=== PATIENT | male | born 1965 | race Caucasian/White ===

== ENCOUNTER 2016-12-29 11:53 | Emergency (ER) | payer SELFPAY ==
[2016-12-29 11:57] VITALS: BP 116/78
[2016-12-29] MEDS ORDERED: HYDROcodone/ACETAMIN 5-325 MG* 1 TAB PO ONE (12:12)
--- NOTE | 2016-12-29 13:06 | RAD ---
HISTORY: Testicular pain, right carotid the left COMPARISONS: None TECHNIQUE: Multiple transverse and longitudinal ultrasound images were obtained of the scrotum, using grayscale, color Doppler, and spectral Doppler imaging. FINDINGS: RIGHT: RIGHT TESTICLE: The right testicle measures 5.7 x 2.5 x 3.3 cm. The right testicle is homogeneous in echotexture, without testicular parenchymal mass. Normal arterial and venous waveforms are identified within the right testicle on spectral Doppler imaging. RIGHT EPIDIDYMIS: The right epididymis measures 1.3 cm at the head. RIGHT SCROTUM: There is no hydrocele or varicocele. LEFT: LEFT TESTICLE: The left testicle measures 5.3 x 2.4 x 3.2 cm. The left testicle is homogeneous in echotexture, without testicular parenchymal mass. Normal arterial and venous waveforms are identified within the left testicle on spectral Doppler imaging. LEFT EPIDIDYMIS: The left epididymis measures 1.1 cm at the head. LEFT SCROTUM: There is no hydrocele or varicocele. OTHER: None IMPRESSION: 1. NO TESTICULAR PARENCHYMAL MASS. 2. NO SONOGRAPHIC FEATURES OF TORSION. PLEASE NOTE THAT PARTIAL OR INTERMITTENT TORSION MAY BE SONOGRAPHICALLY NORMAL.
[2016-12-29 13:28] LABS: Hematocrit 42 % (42-52); Mean Corpuscular HGB Conc 33 g/dl (31-36); Mean Corpuscular Hemoglobin 32 pg (27-31); Mean Corpuscular Volume 97 fL (80-94); Mean Platelet Volume 7 um3 (7.4-10.4); Red Blood Count 4.34 10^6/ul (4.0-5.4); Red Cell Distribution Width 13 % (10.5-15)
[2016-12-29 13:31] LABS: Urine Bilirubin Negative (Negative); Urine Glucose Negative (Negative); Urine Nitrite Negative (Negative)
[2016-12-29 13:57] LABS: Albumin 3.7 g/dL (3.2-5.2); BUN/Creatinine Ratio 22.4 (8-20); C Reactive Protein 19.48 mg/L (< 5.00); Calcium 8.5 mg/dL (8.6-10.3); EGFR African American 140.2 (>60); Globulin 2.5 g/dL (2-4); Potassium 3.7 mmol/L (3.5-5.0); Total Bilirubin 0.4 mg/dL (0.2-1.0); Total Protein 6.2 g/dL (6.4-8.9)
[2016-12-29] MEDS ORDERED: Iohexol 300* (CONTRAST) 10 ML SDV IV ONE (15:47)
--- NOTE | 2016-12-29 17:27 | RAD ---
INDICATION: Lower abdominal pain and testicular pain for 2 days. COMPARISON: Testicular ultrasound of the same date. TECHNIQUE: Multidetector CT images were obtained from the lung bases to the ischial tuberosities with 127 mL Omnipaque 300 IV and oral contrast. Multiplanar reformation. REPORT: Minimal bibasilar dependent subsegmental atelectasis. Normal size liver is diffusely decreased in density consistent with hepatosteatosis with focal sparing at the gallbladder fossa. No suspicious focal hepatic lesions or biliary dilatation. Unremarkable CT appearance of the gallbladder, pancreas, spleen. Negative for CT abnormality of the upper GI or retrocecal appendix. Moderate colonic diverticulosis primarily at the sigmoid colon. Inflamed diverticulum projects anteriorly from the proximal sigmoid colon with mild surrounding perienteric inflammatory change. Negative for ascites, free air, or perienteric abscess. Normal adrenal glands. Unremarkable kidneys with symmetric nephrograms and pyelograms. Unremarkable nondilated ureters and largely decompressed urinary bladder limiting assessment. Coarse calcification at the LEFT portion of the prostate. Unremarkable seminal vesicles. Negative for lymphadenopathy. Normal diameter abdominal aorta and iliac arteries. Physiologic distention of the IVC. Negative for suspicious focal osseous lesions. IMPRESSION: The constellation of findings is consistent with acute sigmoid diverticulitis. Negative for resulting bowel obstruction, free air, or perienteric abscess. Follow-up after therapy suggested to assess for resolution.
--- NOTE | 2016-12-29 18:37 | ED ---
Darinel Amador Thomas, scribed for Edin Smiley MD on 12/29/16 at 1314 . GI/ HPI - HPI Summary HPI Summary: Pt is a 51 y/o M presenting to the ED c/o abdominal pain and testicular pain that began two days ago. He rates the pain 5/10. The pain is exacerbated by movement and palpation. He additionally c/o a pressure sensation in his anal region. He denies dysuria and constipation. - History of Current Complaint Chief Complaint: EDAbdPain Time Seen by Provider: 12/29/16 12:57 Stated Complaint: ABD/GROIN PAIN Hx Obtained From: Patient Onset/Duration: Started Days Ago - 2 days, Still Present Timing: Constant Current Severity: Moderate Pain Intensity: 5 Location of Pain: RLQ, LLQ, Anal - "pressure sensation" in anal region Additional Locations for Males: Scrotum, Testicles Associated Signs and Symptoms: Negative: Constipation, Dysuria Aggravating Factor(s): Movement Alleviating Factor(s): Nothing - Allergy/Home Medications Allergies/Adverse Reactions: Allergies Allergy/AdvReac Type Severity Reaction Status Date / Time No Known Drug Allergy Allergy Unknown Verified 12/29/16 13:57 Reaction Details PMH/Surg Hx/FS Hx/Imm Hx Previously Healthy: Yes Cardiovascular History: Denies: Hx Myocardial Infarction Sensory History: Denies: Hx Legally Blind Infectious Disease History: Denies: Traveled Outside the [place] in Last 30 Days - Family History Known Family History: Positive: Other - POS: Alzheimer's disease - Social History Hx Tobacco Use: No Smoking Status (MU): Never Smoked Tobacco Review of Systems Constitutional: Negative Eyes: Negative ENT: Negative Cardiovascular: Negative Respiratory: Negative Positive: Abdominal Pain - lower, onset 2 days, Other - POS: "pressure sensation " in the anal area; NEG: constipation Positive: pain - testicular, soreness. Negative: dysuria Musculoskeletal: Negative Skin: Negative Neurological: Negative Psychological: Normal All Other Systems Reviewed And Are Negative: Yes Physical Exam Triage Information Reviewed: Yes Vital Signs On Initial Exam: Initial Vitals Temp Pulse Resp BP Pulse Ox 98.2 F 58 20 116/78 96 12/29/16 11:55 12/29/16 11:55 12/29/16 11:55 12/29/16 11:55 12/29/16 11:55 Vital Signs Reviewed: Yes Appearance: Positive: Well-Appearing, No Pain Distress Skin: Positive: Warm, Skin Color Reflects Adequate Perfusion, Dry Head/Face: Positive: Normal Head/Face Inspection Eyes: Positive: Normal ENT: Positive: Normal ENT inspection Neck: Positive: Supple, Nontender Respiratory/Lung Sounds: Positive: Clear to Auscultation, Breath Sounds Present Cardiovascular: Positive: RRR Abdomen Description: Positive: Soft, Other: - POS: bilat lower quadrant tenderness Bowel Sounds: Positive: Present Musculoskeletal: Positive: Normal Neurological: Positive: Normal, Sensory/Motor Intact, Alert, Oriented to Person Place, Time, CN Intact II-III Psychiatric: Positive: Normal, Affect/Mood Appropriate Diagnostics - Vital Signs Vital Signs Temp Pulse Resp BP Pulse Ox 12/29/16 11:57 98.3 F 61 20 116/78 96 12/29/16 11:55 98.2 F 58 20 116/78 96 - Laboratory Lab Results: Lab Results 12/29/16 12/29/16 12/29/16 Range/Units 13:16 13:16 13:16 WBC 7.0 (3.5-10.8) 10^3/ul RBC 4.34 (4.0-5.4) 10^6/ul Hgb 14.0 (14.0-18.0) g/dl Hct 42 (42-52) % MCV 97 H (80-94) fL MCH 32 H (27-31) pg MCHC 33 (31-36) g/dl RDW 13 (10.5-15) % Plt Count 214 (150-450) 10^3/ul MPV 7 L (7.4-10.4) um3 Neut % (Auto) 56.4 (38-83) % Lymph % (Auto) 28.8 (25-47) % [place] % (Auto) 12.3 H (1-9) % Eos % (Auto) 1.3 (0-6) % Baso % (Auto) 1.2 (0-2) % Absolute Neuts (auto) 3.9 (1.5-7.7) 10^3/ul Absolute Lymphs (auto) 2.0 (1.0-4.8) 10^3/ul Absolute Monos (auto) 0.9 H (0-0.8) 10^3/ul Absolute Eos (auto) 0.1 (0-0.6) 10^3/ul Absolute Basos (auto) 0.1 (0-0.2) 10^3/ul Absolute Nucleated RBC 0 10^3/ul Nucleated RBC % 0.1 Sodium 136 (133-145) mmol/L Potassium 3.7 (3.5-5.0) mmol/L Chloride 105 (101-111) mmol/L Carbon Dioxide 26 (22-32) mmol/L Anion Gap 5 (2-11) mmol/L BUN 17 (6-24) mg/dL Creatinine 0.76 (0.67-1.17) mg/dL Est GFR ( Amer) 140.2 (>60) Est GFR (Non-Af Amer) 109.0 (>60) BUN/Creatinine Ratio 22.4 H (8-20) Glucose 90 (70-100) mg/dL Lactic Acid (0.5-2.0) mmol/L Calcium 8.5 L (8.6-10.3) mg/dL Total Bilirubin 0.40 (0.2-1.0) mg/dL AST 9 L (13-39) U/L ALT 11 (7-52) U/L Alkaline Phosphatase 49 (34-104) U/L C-Reactive Protein 19.48 H (< 5.00) mg/L Total Protein 6.2 L (6.4-8.9) g/dL Albumin 3.7 (3.2-5.2) g/dL Globulin 2.5 (2-4) g/dL Albumin/Globulin Ratio 1.5 (1-3) Lipase 23 (11.0-82.0) U/L Urine Color Yellow Urine Appearance Clear Urine pH 7.0 (5-9) Ur Specific [place] 1.021 (1.010-1.030) Urine Protein Negative (Negative) Urine Ketones Negative (Negative) Urine Blood Negative (Negative) Urine Nitrate Negative (Negative) Urine Bilirubin Negative (Negative) Urine Urobilinogen Negative (Negative) Ur Leukocyte Esterase Negative (Negative) Urine Glucose Negative (Negative) 12/29/16 Range/Units 13:16 WBC (3.5-10.8) 10^3/ul RBC (4.0-5.4) 10^6/ul Hgb (14.0-18.0) g/dl Hct (42-52) % MCV (80-94) fL MCH (27-31) pg MCHC (31-36) g/dl RDW (10.5-15) % Plt Count (150-450) 10^3/ul MPV (7.4-10.4) um3 Neut % (Auto) (38-83) % Lymph % (Auto) (25-47) % [place] % (Auto) (1-9) % Eos % (Auto) (0-6) % Baso % (Auto) (0-2) % Absolute Neuts (auto) (1.5-7.7) 10^3/ul Absolute Lymphs (auto) (1.0-4.8) 10^3/ul Absolute Monos (auto) (0-0.8) 10^3/ul Absolute Eos (auto) (0-0.6) 10^3/ul Absolute Basos (auto) (0-0.2) 10^3/ul Absolute Nucleated RBC 10^3/ul Nucleated RBC % Sodium (133-145) mmol/L Potassium (3.5-5.0) mmol/L Chloride (101-111) mmol/L Carbon Dioxide (22-32) mmol/L Anion Gap (2-11) mmol/L BUN (6-24) mg/dL Creatinine (0.67-1.17) mg/dL Est GFR ( Amer) (>60) Est GFR (Non-Af Amer) (>60) BUN/Creatinine Ratio (8-20) Glucose (70-100) mg/dL Lactic Acid 0.6 (0.5-2.0) mmol/L Calcium (8.6-10.3) mg/dL Total Bilirubin (0.2-1.0) mg/dL AST (13-39) U/L ALT (7-52) U/L Alkaline Phosphatase (34-104) U/L C-Reactive Protein (< 5.00) mg/L Total Protein (6.4-8.9) g/dL Albumin (3.2-5.2) g/dL Globulin (2-4) g/dL Albumin/Globulin Ratio (1-3) Lipase (11.0-82.0) U/L Urine Color Urine Appearance Urine pH (5-9) Ur Specific [place] (1.010-1.030) Urine Protein (Negative) Urine Ketones (Negative) Urine Blood (Negative) Urine Nitrate (Negative) Urine Bilirubin (Negative) Urine Urobilinogen (Negative) Ur Leukocyte Esterase (Negative) Urine Glucose (Negative) Result Diagrams: 12/29/16 13:16 12/29/16 13:16 Lab Statement: Any lab studies that have been ordered have been reviewed, and results considered in the medical decision making process. - CT CT Abd/Pel CT Interpretation: Positive (See Comments) - The constellation of findings is consistent with acute sigmoid diverticulitis. Negative for resulting bowel obstruction, free air, or perienteric abscess. Follow-up after therapy suggested to assess for resolution. CT Interpretation Completed By: Radiologist - Ultrasound No standard instances Ultrasound Interpretation: No Acute Changes - TESTICULAR US: 1. NO TESTICULAR PARENCHYMAL MASS. 2. NO SONOGRAPHIC FEATURES OF TORSION. PLEASE NOTE THAT PARTIAL OR INTERMITTENT TORSION MAY BE SONOGRAPHICALLY NORMAL. Ultrasound Interpretation Completed By: Radiologist Re-Evaluation - Re-Evaluation First Eval Re-Evaluation Time: 18:10 Change: Unchanged GIGU Course/Dx - Course Course Of Treatment: Mr. Carnes has juju a couple days of low abdominal pain that radiates into his bilateral testicles especially when he walks or sits. CT showed diverticulitis and he will be treated with antibiotics. He declined pain meds. - Diagnoses Provider Diagnoses: Diverticulitis Discharge - Discharge Plan Condition: Stable Disposition: HOME Prescriptions: Ciprofloxacin TAB* [Cipro Tab*] 500 mg PO BID #20 tab Metronidazole [Flagyl 500 MG TAB] 500 mg PO TID #30 tab Patient Education Materials: Diverticulitis (ED) Referrals: [facility] – [place] PHYSICIAN REFERRAL [Outside] - 1 Week The documentation as recorded by the Darinel paula Thomas accurately reflects the service I personally performed and the decisions made by , Edin Smiley MD.
== END 2016-12-29 18:36 | disposition home or self-care (01) ==
LOC: ED 11:53
DX: K57.92 Diverticulitis of intestine, part unspecified, without perforation or abscess without bleeding (principal)
CPT/HCPCS: 36415; 74177; 76870; 80053; 81003; 83605; 83690; 85025; 86140; 99282; Q9967

== ENCOUNTER 2017-07-17 13:41 | Emergency (ER) | payer BC ==
--- NOTE | 2017-07-17 15:00 | RAD ---
Indication: Cough, fever. 2 views of the chest including dual energy PA views demonstrates no mediastinal shift. Heart is of normal size and configuration. Lung ayala are clear. IMPRESSION: No active cardiopulmonary disease is noted.
--- NOTE | 2017-07-17 15:27 | ED ---
Respiratory - HPI Summary HPI Summary: Patient presents to the ED with cough and congestion. He states his lungs feel like they are on fire. Endorses 1X episode of diahrrea this morning. Denies N/ V/C. Endorses chest pain with cough and SOB. He states he gets bronchitis every year and this feels similar. Endorses history of PNA. 2 episodes of fevers and sweats, but denies chills. This is worse at night. He is resting comfortably and appears in NAD. Hx of diverticulitis. Not on abx for at least 3 months. - History of Current Complaint Chief Complaint: EDUpperRespComplaint Stated Complaint: SICK Time Seen by Provider: 07/17/17 13:52 Hx Obtained From: Patient Onset/Duration: Sudden Onset Timing: Constant Initial Severity: Moderate Current Severity: Mild Pain Intensity: 0 Character: Cough (Productive) Sputum Amount: Scant Sputum Color: White Aggravating Factor(s): URI Alleviating Factor(s): Spontaneous Resolution Associated Signs and Symptoms: SOB, URI, Chest Pain with Cough - Risk Factors Status Asthmaticus Risk Factors: Negative Pulmonary Embolism Risk Factors: Negative Cardiac Risk Factors: Negative Pseudomonas Risk Factors: Negative Tuberculosis Risk Factors: Negative - Allergy/Home Medications Allergies/Adverse Reactions: Allergies Allergy/AdvReac Type Severity Reaction Status Date / Time Latex Allergy Rash And Verified 07/17/17 13:47 Itching PMH/Surg Hx/FS Hx/Imm Hx Previously Healthy: Yes Endocrine/Hematology History: Denies: Hx Diabetes Cardiovascular History: Denies: Hx Myocardial Infarction GI History: Reports: Hx Gastroesophageal Reflux Disease, Other GI Disorders - diverticulitis, gastritis Sensory History: Denies: Hx Legally Blind Opthamlomology History: Denies: Hx Legally Blind - Immunization History Hx Pertussis Vaccination: No Immunizations Up to Date: Unable to Obtain/Confirm Infectious Disease History: No Infectious Disease History: Denies: Traveled Outside the [place] in Last 30 Days - Family History Known Family History: Positive: Other - POS: Alzheimer's disease - Social History Occupation: Employed Full-time Lives: With Family Alcohol Use: Weekly Alcohol Amount: 1-2 beers Hx Substance Use: No Substance Use Type: Reports: None Substance Use Comment - Amount & Last Used: this am Hx Tobacco Use: No Smoking Status (MU): Never Smoked Tobacco Review of Systems Constitutional: Negative Negative: Fever, Chills, Fatigue, Skin Diaphoresis Eyes: Negative Negative: Sore Throat, Ear Ache, Nasal Discharge Positive: Chest Pain Positive: Shortness Of Breath, Cough Positive: Diarrhea. Negative: Abdominal Pain, Vomiting, Nausea Genitourinary: Negative Positive: no symptoms reported, see HPI Musculoskeletal: Negative Skin: Negative Neurological: Negative All Other Systems Reviewed And Are Negative: Yes Physical Exam Triage Information Reviewed: Yes Vital Signs On Initial Exam: Initial Vitals Temp Pulse Resp BP Pulse Ox 97.1 F 63 17 134/79 98 07/17/17 13:42 07/17/17 13:42 07/17/17 13:42 07/17/17 13:42 07/17/17 13:42 Vital Signs Reviewed: Yes Appearance: Positive: Well-Appearing, Well-Nourished Skin: Positive: Warm, Skin Color Reflects Adequate Perfusion Head/Face: Positive: Normal Head/Face Inspection Eyes: Positive: EOMI, ASTER, Conjunctiva Clear Neck: Positive: Supple, No Lymphadenopathy Respiratory/Lung Sounds: Positive: Clear to Auscultation, Breath Sounds Present Cardiovascular: Positive: RRR, Pulses are Symmetrical in both Upper and Lower Extremities Musculoskeletal: Positive: Normal, Strength/ROM Intact Neurological: Positive: Speech Normal Psychiatric: Positive: Normal, Affect/Mood Appropriate - Jordyn Coma Scale Coma Scale Total: 15 Diagnostics - Vital Signs Vital Signs Temp Pulse Resp BP Pulse Ox 07/17/17 13:42 97.1 F 63 17 134/79 98 - Laboratory Lab Results: Lab Results 07/17/17 Range/Units 14:11 Influenza A (Rapid) Negative (Negative) Influenza B (Rapid) Negative (Negative) Lab Statement: Any lab studies that have been ordered have been reviewed, and results considered in the medical decision making process. Disposition - Course Course Of Treatment: Patient presents to the ED with cough and congestion. Xray obtained and negative for pulmonary disease. Patient is given steroids and cough medication. I have discouraged antibiotics based on negative xray. He is Ok with discharge and I have given return precations and follow up for worsening symtpoms. Lungs CTA - Differential Dx - Cardiopulmonary Differential Diagnoses - Cardiopulmonary: Bronchitis, Chest Wall Pain - Diagnoses Provider Diagnoses: Bronchitis Discharge - Discharge Plan Condition: Stable Disposition: HOME Prescriptions: Guaifenesin-Codeine [Codeine/Guaifenesin 100-10 mg/5Ml] 10 ml PO Q6H #160 ml MDD 40 predniSONE TAB* [Deltasone TAB*] 50 mg PO DAILY #5 tab Patient Education Materials: Acute Bronchitis (ED) Referrals: No Primary Care Phys,NOPCP [Primary Care Provider] - Additional Instructions: I believe you have bronchitis which is inflammation in the lungs I have prescribed you prednisone 50mg 5 x daily Robitussin with codeine is given for cough
[2017-07-17 15:44] VITALS: BP 122/77
== END 2017-07-17 15:41 | disposition home or self-care (01) ==
LOC: ED 13:41
DX: J40 Bronchitis, not specified as acute or chronic (principal); R06.02 Shortness of breath; J06.9 Acute upper respiratory infection, unspecified; R05 Cough; R07.9 Chest pain, unspecified
CPT/HCPCS: 71046; 87502; 99282

== ENCOUNTER 2017-10-13 09:28 | Emergency (ER) | payer SELFPAY ==
[2017-10-13] MEDS ORDERED: Aspirin 81 mg CHEW TAB* 81 MG TAB.CHEW PO ONE (10:35)
[2017-10-13] MEDS ORDERED: NS 0.9% 1000 ML* 1,000 ML IV ONE (10:35)
[2017-10-13] MEDS ORDERED: Ondansetron INJ* 2 MG/ML VIAL IV ONE ×2 (10:35→13:06)
[2017-10-13] MEDS ORDERED: Morphine INJ* 4 MG/ML 1 ML SYRINGE (NEW SYRINGE VERSION) IV ONE ×2 (10:35→13:06)
[2017-10-13] MEDS ORDERED: Morphine INJ* 2 MG/ML 1 ML CARPUJECT ONE (10:47)
[2017-10-13 11:12] LABS: ABS Basophils 0.1 10^3/ul (0-0.2); ABS Eosinophils 0.1 10^3/ul (0-0.6); ABS Lymphocytes 1.8 10^3/ul (1.0-4.8); ABS Monocytes 1.1 10^3/ul (0-0.8); ABS Neutrophils 5.9 10^3/ul (1.5-7.7); ABS Nucleated RBC 0 10^3/ul; Eosinophil % 1.6 % (0-6); Hematocrit 42 % (42-52); Hemoglobin 14.3 g/dl (14.0-18.0); Lymphocyte % 20.1 % (25-47); Mean Corpuscular HGB Conc 34 g/dl (31-36); Mean Corpuscular Hemoglobin 32 pg (27-31); Mean Corpuscular Volume 95 fL (80-94); Mean Platelet Volume 7.2 um3 (7.4-10.4); Nucleated Red Blood Cells % 0.1; Platelet Count 217 10^3/ul (150-450); Red Blood Count 4.46 10^6/ul (4.0-5.4); Red Cell Distribution Width 14 % (10.5-15); White Blood Count 8.9 10^3/ul (3.5-10.8)
--- NOTE | 2017-10-13 11:18 | RAD ---
HISTORY: MRI clearance. COMPARISON: None. FINDINGS: Frontal and lateral views of the orbits. There is no radiopaque foreign body attributable to the orbits. The orbital rims are intact. The sinuses are clear. The zygomatic arches are normal. IMPRESSION: No radiopaque foreign body attributable to the orbits.
[2017-10-13 11:23] LABS: INR 0.84 (0.77-1.02)
[2017-10-13 11:33] LABS: EGFR Non-African American 97.1 (>60)
[2017-10-13] MEDS: Iohexol 350* (CONTRAST) 500 ML MDV IV ONE ×2 (12:27→12:33)
--- NOTE | 2017-10-13 12:42 | RAD ---
INDICATION: Chronic neck pain with radiation to the right upper extremity for "several years". The neck pain was worse this morning. COMPARISON: None TECHNIQUE: Coronal T2, sagittal T1, inversion recovery, T2, and axial T1, T2, and gradient echo images were acquired. FINDINGS: The sella and craniocervical junction appear unremarkable. There are no intrinsic abnormalities of the cord. There is a small degree of reversal of the normal cervical lordosis. The vertebral bodies and facet joints are otherwise appropriately aligned. The atlantodental interval is normal. Axial view images: Less otherwise specified below there is no significant central canal stenosis or neural foraminal stenosis. C2-C3: There is no significant central canal or neural foraminal stenoses. C3-C4: Mild broad-based disc protrusion slightly distorts the ventral thecal sac. C4-C5: There is broad-based disc protrusion that distorts the ventral thecal sac but does not yield any significant stenosis. C5-C6: Broad-based disc protrusion abuts the ventral thecal sac but does not cause any significant stenosis. C6-C7: Broad-based disc protrusion extending into the right worse than left subarticular region causes a mild degree of right neural foraminal stenosis and very mild left neural foraminal stenosis. C7-T1: There is broad-based disc protrusion extending into the right neural foraminal stenosis and to a lesser extent the left neural foraminal stenosis that combines with facet arthropathy and uncovertebral hypertrophy to cause moderate right and mild left neural foraminal stenosis. IMPRESSION: Degenerative disc disease as described above most severely affecting C6/C7 and C7/T1.
--- NOTE | 2017-10-13 12:45 | RAD ---
INDICATION: Upper bilateral chest pain COMPARISON: None TECHNIQUE: Axial source images were acquired following the administration of 83 mL Omnipaque [address] angiographic technique. Coronal and sagittal reconstructed images were constructed and reviewed. FINDINGS: There there are no filling defects in the pulmonary arteries to indicate acute pulmonary embolic disease. There are no focal infiltrates or effusions. There are no pulmonary parenchymal masses. The heart is normal in size. There is no evidence of pericardial effusion. There is no evidence of aortic aneurysm or dissection. There is no mediastinal, hilar, or axillary lymphadenopathy. The visualized osseous structures appear normal. Limited views of the upper abdomen show no abnormalities. IMPRESSION: No CT of evidence of pulmonary embolism or other acute thoracic pathology.
[2017-10-13] MEDS ORDERED: oxyCODONE/Acetamin 5/325 MG* TAB PO ONE (13:06)
--- NOTE | 2017-10-13 14:34 | RAD ---
HISTORY: Right shoulder pain, difficulty with abduction COMPARISONS: None VIEWS: 4, Frontal internal rotation, external rotation, outlet, and axillary views of the right shoulder FINDINGS: BONE DENSITY: Normal. BONES: There is no displaced fracture. JOINTS: There is osteoporosis of the right AC joint with a prominent osteophyte along the undersurface of the lateral clavicle. ALIGNMENT: There is no dislocation. SOFT TISSUES: Unremarkable. OTHER FINDINGS: None. IMPRESSION: A.C. OSTEOARTHRITIS. NO ACUTE OSSEOUS INJURY. IF SYMPTOMS PERSIST, RECOMMEND REPEAT IMAGING.
--- NOTE | 2017-10-13 14:43 | ED ---
Darinel Amador Thomas, scribed for Brad Neves MD on 10/13/17 at 1037 . 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 The patient is employed as a welder apprentice and is often reaching forward with his upper extremities. The patient was at work yesterday and he notes some mid neck pain that began yesterday after he was at work. The patient treated his pain with ibuprofen 800mg this morning at about 08:00. The patient has been dealing with chronic right arm pain that began one year ago that has been steadily worsening. He also complains of bilateral upper chest pain with onset one month ago that is present when he breathes deeply. He has a history of three herniated discs. - History of Current Complaint Chief Complaint: EDNeckComplaint Stated Complaint: NECK PAIN Time Seen by Provider: 10/13/17 10:19 Hx Obtained From: Patient Onset/Duration Of Injury/Symptoms: Days Timing: Constant Onset/Duration: Started days ago, Still Present Severity Currently: Severe Pain Intensity: 8 Pain Scale Used: 0-10 Numeric Location: Discrete At: - neck, right shoulder, chest Aggravating Factors: Other: - Deep breaths Alleviating Factors: Nothing Associated Signs & Symptoms: Positive: Weakness - neck, right arm. Negative: Fever Related History: Other - Patient is employed as a welder apprentice and is often reaching his arm out - Allergies/Home Medications Allergies/Adverse Reactions: Allergies Allergy/AdvReac Type Severity Reaction Status Date / Time latex Allergy Rash And Verified 10/13/17 10:26 Itching Home Medications: Home Medications Omeprazole CAP* [Prilosec CAP* 20 MG] 20 mg PO DAILY 10/13/17 [History Confirmed 10/13/17] PMH/Surg Hx/FS Hx/Imm Hx Endocrine/Hematology History: Denies: Hx Diabetes Cardiovascular History: Denies: Hx Myocardial Infarction GI History: Reports: Hx Gastroesophageal Reflux Disease, Other GI Disorders - diverticulitis, gastritis Sensory History: Denies: Hx Legally Blind Opthamlomology History: Denies: Hx Legally Blind Neurological History: Reports: Other Neuro Impairments/Disorders - Hx herniated discs Infectious Disease History: No Infectious Disease History: Denies: Traveled Outside the [place] in Last 30 Days - Family History Known Family History: Positive: Other - POS: Alzheimer's disease - Social History Alcohol Use: Weekly Alcohol Amount: 1-2 beers Hx Substance Use: No Substance Use Type: Reports: None Substance Use Comment - Amount & Last Used: this am Hx Tobacco Use: No Smoking Status (MU): Never Smoked Tobacco Review of Systems Negative: Fever Positive: Chest Pain Positive: Other - Neck pain, right arm pain Positive: Weakness - neck, right arm All Other Systems Reviewed And Are Negative: Yes Physical Exam - Summary Physical Exam Summary: General: well-appearing, mild pain distress Skin: warm, color reflects adequate perfusion, dry Head: normal Eyes: EOMI, ASTER ENT: normal Neck: Supple. He is tender to his mid neck and to the right side of the neck. Respiratory: CTA, breath sounds present Cardiovascular: RRR Abdomen: soft, nontender Bowel: present Extremities: He has good pulses and sensation throughout his upper extremities. He has good strength and range of motion in his hands, wrist, and elbows. He has decreased range of motion in his right shoulder. Musculoskeletal: He has good strength and range of motion in his hands, wrist, and elbows. He has decreased range of motion in his right shoulder. Neurological: sensory/motor intact, A&O x3 Psychological: affect/mood appropriate Triage Information Reviewed: Yes Vital Signs On Initial Exam: Initial Vitals Temp Pulse Resp BP Pulse Ox 98.1 F 60 15 112/80 96 10/13/17 09:33 10/13/17 09:33 10/13/17 09:33 10/13/17 09:33 10/13/17 09:33 Vital Signs Reviewed: Yes Diagnostics - Vital Signs Vital Signs Temp Pulse Resp BP Pulse Ox 10/13/17 10:24 50 97 10/13/17 10:22 114/83 10/13/17 09:33 98.1 F 60 15 112/80 96 - Laboratory Lab Results: Lab Results 10/13/17 10/13/17 10/13/17 Range/Units 10:55 10:55 10:55 WBC (3.5-10.8) 10^3/ul RBC (4.0-5.4) 10^6/ul Hgb (14.0-18.0) g/dl Hct (42-52) % MCV (80-94) fL MCH (27-31) pg MCHC (31-36) g/dl RDW (10.5-15) % Plt Count (150-450) 10^3/ul MPV (7.4-10.4) um3 Neut % (Auto) (38-83) % Lymph % (Auto) (25-47) % Callaway % (Auto) (0-7) % Eos % (Auto) (0-6) % Baso % (Auto) (0-2) % Absolute Neuts (auto) (1.5-7.7) 10^3/ul Absolute Lymphs (auto) (1.0-4.8) 10^3/ul Absolute Monos (auto) (0-0.8) 10^3/ul Absolute Eos (auto) (0-0.6) 10^3/ul Absolute Basos (auto) (0-0.2) 10^3/ul Absolute Nucleated RBC 10^3/ul Nucleated RBC % INR (Anticoag Therapy) 0.84 (0.77-1.02) APTT 32.0 (26.0-36.3) seconds Sodium 137 L (139-145) mmol/L Potassium 4.4 (3.5-5.0) mmol/L Chloride 107 (101-111) mmol/L Carbon Dioxide 26 (22-32) mmol/L Anion Gap 4 (2-11) mmol/L BUN 19 (6-24) mg/dL Creatinine 0.84 (0.67-1.17) mg/dL Est GFR ( Amer) 124.9 (>60) Est GFR (Non-Af Amer) 97.1 (>60) BUN/Creatinine Ratio 22.6 H (8-20) Glucose 96 (70-100) mg/dL Lactic Acid (0.5-2.0) mmol/L Calcium 8.6 (8.6-10.3) mg/dL Magnesium 2.1 (1.9-2.7) mg/dL Total Bilirubin 0.30 (0.2-1.0) mg/dL AST 10 L (13-39) U/L ALT 14 (7-52) U/L Alkaline Phosphatase 51 (34-104) U/L Total Creatine Kinase 96 (10-223) U/L CK-MB (CK-2) 2.4 (0.6-6.3) ng/mL Troponin I 0.00 (<0.04) ng/mL C-Reactive Protein < 1.00 (< 5.00) mg/L B-Natriuretic Peptide 39 ( - 100) pg/mL Total Protein 6.2 L (6.4-8.9) g/dL Albumin 3.9 (3.2-5.2) g/dL Globulin 2.3 (2-4) g/dL Albumin/Globulin Ratio 1.7 (1-3) TSH 1.32 (0.34-5.60) mcIU/mL 10/13/17 10/13/17 Range/Units 10:55 10:55 WBC 8.9 (3.5-10.8) 10^3/ul RBC 4.46 (4.0-5.4) 10^6/ul Hgb 14.3 (14.0-18.0) g/dl Hct 42 (42-52) % MCV 95 H (80-94) fL MCH 32 H (27-31) pg MCHC 34 (31-36) g/dl RDW 14 (10.5-15) % Plt Count 217 (150-450) 10^3/ul MPV 7.2 L (7.4-10.4) um3 Neut % (Auto) 65.4 (38-83) % Lymph % (Auto) 20.1 L (25-47) % Callaway % (Auto) 12.0 H (0-7) % Eos % (Auto) 1.6 (0-6) % Baso % (Auto) 0.9 (0-2) % Absolute Neuts (auto) 5.9 (1.5-7.7) 10^3/ul Absolute Lymphs (auto) 1.8 (1.0-4.8) 10^3/ul Absolute Monos (auto) 1.1 H (0-0.8) 10^3/ul Absolute Eos (auto) 0.1 (0-0.6) 10^3/ul Absolute Basos (auto) 0.1 (0-0.2) 10^3/ul Absolute Nucleated RBC 0 10^3/ul Nucleated RBC % 0.1 INR (Anticoag Therapy) (0.77-1.02) APTT (26.0-36.3) seconds Sodium (139-145) mmol/L Potassium (3.5-5.0) mmol/L Chloride (101-111) mmol/L Carbon Dioxide (22-32) mmol/L Anion Gap (2-11) mmol/L BUN (6-24) mg/dL Creatinine (0.67-1.17) mg/dL Est GFR ( Amer) (>60) Est GFR (Non-Af Amer) (>60) BUN/Creatinine Ratio (8-20) Glucose (70-100) mg/dL Lactic Acid 0.6 (0.5-2.0) mmol/L Calcium (8.6-10.3) mg/dL Magnesium (1.9-2.7) mg/dL Total Bilirubin (0.2-1.0) mg/dL AST (13-39) U/L ALT (7-52) U/L Alkaline Phosphatase (34-104) U/L Total Creatine Kinase (10-223) U/L CK-MB (CK-2) (0.6-6.3) ng/mL Troponin I (<0.04) ng/mL C-Reactive Protein (< 5.00) mg/L B-Natriuretic Peptide ( - 100) pg/mL Total Protein (6.4-8.9) g/dL Albumin (3.2-5.2) g/dL Globulin (2-4) g/dL Albumin/Globulin Ratio (1-3) TSH (0.34-5.60) mcIU/mL Result Diagrams: 10/13/17 10:55 10/13/17 10:55 Lab Statement: Any lab studies that have been ordered have been reviewed, and results considered in the medical decision making process. - Radiology XR Orbit Xray Interpretation: No Acute Changes - IMPRESSION: No radiopaque foreign body attributable to the orbits. Dr. Neves has reviewed this report. Radiology Interpretation Completed By: Radiologist XR Shoulder Xray Interpretation: No Acute Changes - A.C. OSTEOARTHRITIS. NO ACUTE OSSEOUS INJURY. IF SYMPTOMS PERSIST, RECOMMEND REPEAT IMAGING. Dr. Neves has reivewed this report. Radiology Interpretation Completed By: Radiologist - CT CTA Chest/Thorax CT Interpretation: No Acute Changes - IMPRESSION: No CT of evidence of pulmonary embolism or other acute thoracic pathology. Dr. Neves has reviewed this report. CT Interpretation Completed By: Radiologist - EKG 10:45 Cardiac Rate: Bradycardia EKG Rhythm: Sinus Bradycardia - at 43 BPM Ectopy: None EKG Interpretation: ST elevation, probably early repolarization pattern. - Additional Comments Diagnostic Additional Comments: MRI CERVICAL SPINE W/O Interpreted by radiologist. IMPRESSION: Degenerative disc disease as described above most severely affecting C6/C7 and C7/T1. Dr. Neves has reviewed this report. Re-Evaluation - Re-Evaluation First Eval Re-Evaluation Time: 14:39 Comment: Results discussed. Patient will be discharged. Neck Course/Dx - Course Course Of Treatment: Medications reviewed. Allergies noted. DISCUSSED WITH DR ZEPEDA, NEUROSURGERY, WHO REVIEWED THE MRI. F/U OUT PATIENT WITH DR ZEPEDA AND PMD. ALSO, EVAL OF RIGHT SHOULDER BY PMD OR ORTHOPEDICS. RETURN IF WORSE. - Diagnoses Provider Diagnoses: Neck pain, Cervical radiculopathy, Right shoulder pain - Physician Notifications Discussed Care Of Patient With: Varghese Time Discussed With Above Provider: 13:41 Instructed by Provider To: Other - Dr. Zepeda, neurosurgery, did not see anything on the patients scans that warrants neurosurgery immediately. Dr. Zepeda will see the patient in the office. Discharge - Sign-Out/Discharge Documenting (check all that apply): Discharge - Discharge Plan Condition: Stable Disposition: HOME Prescriptions: Cyclobenzaprine TAB* [Flexeril 10 MG TAB*] 10 mg PO TID PRN #15 tab PRN Reason: Pain Ibuprofen TAB* [Motrin TAB* 800 MG] 800 mg PO TID PRN #20 tab PRN Reason: Pain oxyCODONE/Acetamin 5/325 MG* [Percocet 5/325 TAB*] 1 tab PO Q4H PRN #30 tab MDD 6 PRN Reason: Pain Patient Education Materials: Cervical Radiculopathy (ED), Shoulder Pain (ED), Chronic Neck Pain (DC) Referrals: [facility] [place] PHYSICIAN REFERRAL [Outside] Stefan Mantilla MD [Medical Doctor] - Additional Instructions: FOLLOW UP WITH YOUR DOCTOR. RETURN TO THE EMERGENCY DEPARTMENT FOR ANY WORSENING OF YOUR CONDITION; WEAKNESS , NUMBNESS, PAIN OR QUESTIONS OR CONCERNS. - Billing Disposition and Condition Condition: STABLE Disposition: HOME The documentation as recorded by the Darinel paula Thomas accurately reflects the service I personally performed and the decisions made by me, Brad Neves MD.
[2017-10-13 14:45] VITALS: BP 126/77
== END 2017-10-13 14:50 | disposition home or self-care (01) ==
LOC: ED 09:28
DX: M54.2 Cervicalgia (principal); M54.12 Radiculopathy, cervical region; M25.511 Pain in right shoulder; M19.011 Primary osteoarthritis, right shoulder; R00.1 Bradycardia, unspecified; K21.9 Gastro-esophageal reflux disease without esophagitis; Z91.040 Latex allergy status
CPT/HCPCS: 36415; 70030; 71275; 72141; 80053; 82550; 82553; 83605; 83735; 83880; 84443; 84484; 85025; 85610; 85730; 86140; 93005; 96374; 96375; 96376; 99283; A9270-GY; J2270; J2405; Q9967

== ENCOUNTER 2018-01-31 12:24 | Observation (INO) | payer SELFPAY ==
--- NOTE | 2018-01-31 13:01 | ED ---
HPI Chest Pain - HPI Summary HPI Summary: This is scribe Alessia Brooks documenting for attending Edin Smiley MD. Pt is a 52 y/o M who presents to ED c/o CP. Sx began about 1.5 hours [employer] and was intermittent for about 1 hour. 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 Pain was characterized as pressure and located in the midsternal region, ranked 7/10 on triage, though resolved while in room. Additionally c/o intermittent episodes of dizziness, bilateral LE tingling/numbness, palpitations, diffuse "shaking" and diaphoresis which accompanied the chest pain. At this time, all symptoms are resolved and pt states that he "feels excellent" and has not had any episodes since arriving to his room and lying down. No prior similar episodes. No PMHx or FHx of CAD. - History of Current Complaint Chief Complaint: EDChestPainROMI Time Seen by Provider: 01/31/18 12:33 Hx Obtained From: Patient Onset/Duration: Started Hours Ago - 1.5 hours, Resolved Timing: Intermittent Initial Severity: Moderate - 7/10 on triage Current Severity: None Pain Intensity: 7 - On triage Pain Scale Used: 0-10 Numeric Chest Pain Location: Mid Sternal Character: Pressure/Squeezing Aggravating Factor(s): Nothing Alleviating Factor(s): Other: - Lying down Associated Signs and Symptoms: Positive: Chest Pain, Dizziness, Diaphoresis, Palpitations - Allergy/Home Medications Allergies/Adverse Reactions: Allergies Allergy/AdvReac Type Severity Reaction Status Date / Time latex Allergy Rash And Verified 10/13/17 10:26 Itching PMH/Surg Hx/FS Hx/Imm Hx Endocrine/Hematology History: Denies: Hx Diabetes Cardiovascular History: Denies: Hx Hypertension, Hx Myocardial Infarction GI History: Reports: Hx Gastroesophageal Reflux Disease, Other GI Disorders - diverticulitis, gastritis Sensory History: Denies: Hx Legally Blind Opthamlomology History: Denies: Hx Legally Blind Neurological History: Reports: Other Neuro Impairments/Disorders - Hx herniated discs - Immunization History Immunizations Up to Date: Yes Infectious Disease History: No Infectious Disease History: Denies: Traveled Outside the [place] in Last 30 Days - Family History Known Family History: Positive: Other - POS: Alzheimer's disease - Social History Alcohol Use: Daily Alcohol Amount: 1-2 beers Hx Substance Use: No Substance Use Type: Reports: None Substance Use Comment - Amount & Last Used: this am Hx Tobacco Use: No Smoking Status (MU): Never Smoked Tobacco Review of Systems Positive: Skin Diaphoresis, Other - diffuse "shaking" Positive: Palpitations, Chest Pain Neurological: Other - Dizziness Positive: Numbness - Bilateral LE numbness/tingling All Other Systems Reviewed And Are Negative: Yes Physical Exam - Summary Physical Exam Summary: Appearance: The patient is well-nourished in no acute distress and in no acute pain. Skin: The skin is warm and dry and skin color reflects adequate perfusion. HEENT: The head is normocephalic and atraumatic. The pupils are equal and reactive. The conjunctivae are clear and without drainage. Nares are patent and without drainage. Mouth reveals moist mucous membranes and the throat is without erythema and exudate. The external ears are intact. The ear canals are patent and without drainage. The tympanic membranes are intact. Neck: The neck is supple with full range of motion and non-tender. There are no carotid bruits. There is no neck vein distension. Respiratory: Chest is non-tender. Lungs are clear to auscultation and breath sounds are symmetrical and equal. Cardiovascular: Heart is regular rate and rhythm. There is no murmur or rub auscultated. There is no peripheral edema and pulses are symmetrical and equal. Abdomen: The abdomen is soft and non-tender. There are normal bowel sounds heard in all four quadrants and there is no organomegaly palpated. Musculoskeletal: There is no back tenderness noted. Extremities are non-tender with full range of motion. There is good capillary refill. There is no peripheral edema or calf tenderness elicited. Neurological: Patient is alert and oriented to person, place and time. The patient has symmetrical motor strength in all four extremities. Cranial nerves are grossly intact. Deep tendon reflexes are symmetrical and equal in all four extremities. Psychiatric: The patient has an appropriate affect and does not exhibit any anxiety or depression. Triage Information Reviewed: Yes Vital Signs On Initial Exam: Initial Vitals Temp Pulse Resp BP Pulse Ox 98.1 F 62 16 111/80 98 01/31/18 12:26 01/31/18 12:26 01/31/18 12:26 01/31/18 12:01/31/18 12:26 Vital Signs Reviewed: Yes Diagnostics - Vital Signs Vital Signs Temp Pulse Resp BP Pulse Ox 01/31/18 12:26 98.1 F 62 16 111/80 98 - Laboratory Result Diagrams: 01/31/18 13:10 01/31/18 13:10 Lab Statement: Any lab studies that have been ordered have been reviewed, and results considered in the medical decision making process. - Radiology CXR Xray Interpretation: No Acute Changes - NO ACTIVE CARDIOPULMONARY DISEASE IS NOTED. ED physician reviewed this report. Radiology Interpretation Completed By: Radiologist - EKG 1232 Cardiac Rate: NL - 58 bpm EKG Rhythm: Sinus Rhythm ST Segment: Normal Ectopy: None EKG Interpretation: Normal Re-Evaluation - Re-Evaluation First Eval Re-Evaluation Time: 16:53 Comment: Pt felt well and pt ambulated around. Discussed results. Chest Pain Course/Dx - Course Course Of Treatment: Mr. Carnes has a concerning story of chest pain and near- syncope today his EKG and troponins were within normal limits but I have asked the hospitalist to evaluate him for possible admission and stress. - Diagnoses Provider Diagnoses: Chest pain, Near syncope - Provider Notifications Discussed Care Of Patient With: Leah Pascal Time Discussed With Above Provider: 17:06 Instructed by Provider To: Other - Consulted about the pt Discharge - Sign-Out/Discharge Documenting (check all that apply): Patient Departure - Discharge Plan Condition: Stable Disposition: ADMITTED TO [facility] Referrals: No Primary Care Phys,NOPCP [Primary Care Provider] - - Billing Disposition and Condition Condition: STABLE Disposition: Admitted to [facility]
[2018-01-31 13:24] LABS: ABS Basophils 0 10^3/ul (0-0.2); ABS Eosinophils 0.1 10^3/ul (0-0.6); ABS Lymphocytes 1.9 10^3/ul (1.0-4.8); ABS Monocytes 0.9 10^3/ul (0-0.8); ABS Neutrophils 3.6 10^3/ul (1.5-7.7); ABS Nucleated RBC 0 10^3/ul; Eosinophil % 1.7 % (0-6); Hematocrit 44 % (42-52); Hemoglobin 15.1 g/dl (14.0-18.0); Mean Corpuscular HGB Conc 34 g/dl (31-36); Mean Corpuscular Hemoglobin 32 pg (27-31); Mean Corpuscular Volume 94 fL (80-94); Mean Platelet Volume 7.2 um3 (7.4-10.4); Nucleated Red Blood Cells % 0; Platelet Count 230 10^3/ul (150-450); Red Blood Count 4.72 10^6/ul (4.00-5.40); Red Cell Distribution Width 14 % (10.5-15); White Blood Count 6.5 10^3/ul (3.5-10.8)
--- NOTE | 2018-01-31 13:41 | RAD ---
Indication: Chest pain. Single frontal view of the chest performed at 1311 hours was reviewed. Comparison is made with previous exam dated July 17, 2017. No mediastinal shift is noted. Heart is of normal size and configuration. Lung ayala appear clear. IMPRESSION: NO ACTIVE CARDIOPULMONARY DISEASE IS NOTED.
[2018-01-31 13:44] LABS: EGFR Non-African American 91.7 (>60)
[2018-01-31] MEDS ORDERED: Al Hydrox/Mg Hydrox/Simet LIQ* 30 ML UDC PO PRN (18:50)
[2018-01-31] MEDS ORDERED: Nitroglycerin TAB 0.4 MG* 0.4 MG TAB SL PRN (18:54)
[2018-01-31] MEDS ORDERED: Aspirin TAB* 325 MG PO ONE (18:54)
[2018-01-31] MEDS ORDERED: Morphine INJ* 2 MG/ML 1 ML SYRINGE (TWO MG - NEW SYRINGE VERSION) IV PRN (18:56)
[2018-01-31] MEDS ORDERED: Enoxaparin(*) 40 MG/0.4 ML SYR SUBCUT SCH (19:00)
[2018-01-31] MEDS ORDERED: Acetaminophen TAB* 325 MG PO PRN (19:10)
[2018-01-31] MEDS ORDERED: Thiamine IV* 100 MG/ML 2 ML VIAL IM ONE (19:10)
[2018-01-31] MEDS ORDERED: LORazepam TAB(*) 1 MG PO SCH (20:00)
[2018-01-31] MEDS: Sucralfate SUSP 1 GM/10 ml 10 ML UDC PO SCH (20:41)
[2018-01-31] MEDS: Omeprazole CAP* 20 MG PO SCH (20:41)
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
[2018-02-01 05:17] LABS: ABS Basophils 0.1 10^3/ul (0-0.2); ABS Eosinophils 0.2 10^3/ul (0-0.6); ABS Lymphocytes 2.5 10^3/ul (1.0-4.8); ABS Monocytes 0.9 10^3/ul (0-0.8); ABS Neutrophils 2.5 10^3/ul (1.5-7.7); ABS Nucleated RBC 0 10^3/ul; Eosinophil % 3.3 % (0-6); Hematocrit 46 % (42-52); Hemoglobin 15.7 g/dl (14.0-18.0); Lymphocyte % 40.2 % (25-47); Mean Corpuscular HGB Conc 34 g/dl (31-36); Mean Corpuscular Hemoglobin 32 pg (27-31); Mean Corpuscular Volume 95 fL (80-94); Nucleated Red Blood Cells % 0.1; Platelet Count 220 10^3/ul (150-450); Red Blood Count 4.85 10^6/ul (4.00-5.40); Red Cell Distribution Width 14 % (10.5-15); White Blood Count 6.3 10^3/ul (3.5-10.8)
[2018-02-01 05:35] LABS: EGFR Non-African American 95.4 (>60)
[2018-02-01] MEDS ORDERED: Multivitamins/Minerals TAB PO SCH (09:00)
[2018-02-01] MEDS ORDERED: Thiamine TAB* 100 MG TAB PO SCH (09:00)
[2018-02-01] MEDS ORDERED: Folic Acid TAB* 1 MG PO SCH (09:00)
[2018-02-01] MEDS: Omeprazole CAP* 20 MG PO SCH (09:04)
[2018-02-01] MEDS ORDERED: Regadenoson* 0.4 MG/5 ML SYRINGE ONE (10:46)
--- NOTE | 2018-02-01 11:07 | ECHO ---
Patient: MYRNA GLOVER Rec#: [id number] : 1965 Date: 02/01/2018 Age: 52y Height: 165 cm / 65.0 in Weight: 100 kg / 220.4 lbs Sex: M BSA: 2.06 Room#: 433 Admit Date#: 01/31/2018 Type: Inpatient Referring: Martin Hardy Reading: Nelson Mancilla MD Radiator Specialist: Meenu Caballero RDCS,RDMS Transthoracic Echocardiogram Indication: CP BP: 117/69 HR: 50 Rhythm: NSR Findings History: ETOH Technical Comments: The study quality is good. Left Ventricle: The left ventricular chamber size is normal. Mild concentric left ventricular hypertrophy is observed. Global left ventricular wall motion and contractility are within normal limits. There is normal left ventricular systolic function. The estimated ejection fraction is 55-60%. There is no consistent Doppler evidence of clinically significant diastolic dysfunction. Left Atrium: The left atrial chamber size is normal. Right Ventricle: The right ventricular chamber size and systolic function are within normal limits. Right Atrium: The right atrial cavity size is normal. Aortic Valve: The aortic valve is trileaflet. Systolic excursion of the aortic valve is normal. There is no evidence of aortic regurgitation. There is no evidence of aortic stenosis. Mitral Valve: The mitral valve leaflets are mildly thickened. There is a trace of mitral regurgitation. There is no evidence of mitral stenosis. Tricuspid Valve: The tricuspid valve leaflets are normal. There is no evidence of tricuspid valve regurgitation. Unable to estimate the right ventricular systolic pressure. Pulmonic Valve: The pulmonic valve appears normal. There is no evidence of pulmonic regurgitation. Pericardium: There is no significant pericardial effusion. Aorta: The aortic root appears normal. There is no dilatation of the aortic arch. Pulmonary Artery: The main pulmonary artery is not well visualized. Venous: The inferior vena cava appears normal in size. There is an approximate 50% respiratory change in the inferior vena cava dimension. Conclusions Mild concentric left ventricular hypertrophy is observed. There is normal left ventricular systolic function. The estimated ejection fraction is 55-60%. No significant valvular disease: There is a trace of mitral regurgitation. No reports of prior studies are offered for comparison. Measurements Name Value Normal Range RVIDd (AP) 2D 3.2 cm (0.9 - 2.6) RVDdMajor (2D) 3.8 cm (2.2 - 4.4) RAd ISD 4CH 4.8 cm (3.4 - 4.9) RA (A4C)W 4.2 cm (2.9 - 4.6) IVSd (2D) 1.3 cm (0.6 - 1) LVPWd (2D) 1.1 cm (0.6 - 1) LVIDd (2D) 5.1 cm (3.6 - 5.4) LVIDs (2D) 2.8 cm - LV FS (2D) 44 % (25 - 45) Aortic Annulus 2.2 cm (1.4 - 2.6) Ao root diameter (2D) 3.1 cm (2.1 - 3.5) Ascending Ao 3.1 cm (2.1 - 3.4) Aortic arch 3 cm (1.8 - 3.4) LA dimension (AP) 2D 4.4 cm (2.3 - 3.8) LAd ISD 4CH 5.9 cm (2.9 - 5.3) LA ISD 4CH W 4.3 cm (2.5 - 4.5) Name Value Normal Range LA ESV BP (A/L) index 29 ml/m2 - Name Value Normal Range MV E-wave Vmax 0.5 m/sec - MV deceleration time 169 msec - MV A-wave Vmax 0.4 m/sec - MV E:A ratio 1.2 ratio - P. vein S-wave Vmax 0.5 m/sec - P. vein D-wave Vmax 0.4 m/sec - P. vein S:D Vmax ratio 1.1 ratio - P. vein A-wave duration 100 msec - LV septal e' Vmax 0.09 m/sec - LV lateral e' Vmax 0.1 m/sec - LV E:e' septal ratio 6 ratio - LV E:e' lateral ratio 5 ratio - Name Value Normal Range AV Vmax 1.2 m/sec - AV VTI 26 cm - AV peak gradient 6 mmHg - AV mean gradient 3 mmHg - LVOT Vmax 0.7 m/sec - LVOT VTI 19 cm - LVOT peak gradient 2 mmHg - LVOT mean gradient 1 mmHg - KEILY Vmax 0.7 m/sec - Name Value Normal Range RAP 8 mmHg - IVC diameter 1.7 cm - Name Value Normal Range PV Vmax 0.6 m/sec - PV peak gradient 1.4 mmHg -
[2018-02-01] MEDS: Sucralfate SUSP 1 GM/10 ml 10 ML UDC PO SCH ×3 (11:56→17:20)
--- NOTE | 2018-02-01 17:18 | PN ---
Subjective Date of Service: 02/01/18 Interval History: Pt seen and examined. Meds and labs reviewed CC: Chest pain, reproduced during stress test, now resolved ROS: Denied HOPKINS/dizziness, F/C, N/V, denies any current CP, SOB, increased cough , sputum production, abd pain, diarrhea, constipation, dysuria, myalgias, arthralgias, throat pain, and new skin lesions. The rest of the 14 point ROS are unremarkable. PHYSICAL EXAM: GEN APPEARANCE: Awake, not in acute distress HEENT: NC/AT, PERRLA, moist oral mucosa, (-) throat erythema NECK: Soft, supple, (-) cervical LAD, (-)JVD HEART: S1S2 WNL, RRR, No MRG CHEST: CTA, BL, GAE, No W/R/R ABD: Soft, ND/NT, NABS 4x Q EXT: No C/C/E SKIN: Warm to touch PSYCH: No active psychosis, hallucinations, depression, SI/HI Objective Active Medications: Acetaminophen (Tylenol Tab*) 650 mg PO Q4H PRN PRN Reason: PAIN Al Hydrox/Mg Hydrox/Simethicone (Maalox Plus*) 30 ml PO Q6H PRN PRN Reason: INDIGESTION Enoxaparin Sodium (Lovenox(*)) 40 mg SUBCUT Q24H [facility] Last Admin: 01/31/18 20:41 Dose: 40 mg Folic Acid (Folvite Tab*) 1 mg PO DAILY [facility] Last Admin: 02/01/18 09:05 Dose: 1 mg Lorazepam (Ativan Tab(*)) 0 - 6 mg PO .PER [facility] PROTOCOL [facility]; Protocol Morphine Sulfate (Morphine Inj ((Syringe))*) 0.5 mg IV Q6H PRN PRN Reason: PAIN Multivitamins/Minerals (Theragran/Minerals Tab*) 1 tab PO DAILY [facility] Last Admin: 02/01/18 09:05 Dose: 1 tab Nitroglycerin (Nitroglycerin Tab 0.4 Mg*) 0.4 mg SL Q5M PRN PRN Reason: ANGINA Omeprazole (Prilosec Cap*) 20 mg PO BID [facility] Last Admin: 02/01/18 09:04 Dose: 20 mg Sucralfate (Sucralfate Susp) 1 gm PO QID [facility] Last Admin: 02/01/18 14:37 Dose: 1 gm Thiamine HCl (Vitamin B-1 Tab*) 100 mg PO DAILY [facility] Last Admin: 02/01/18 09:04 Dose: 100 mg Oxygen Devices in Use Now: None Result Diagrams: 02/01/18 05:05 02/01/18 05:05 Assess/Plan/Problems-Billing Assessment: - Patient Problems (1) Chest pain Current Visit: Yes Status: Acute Code(s): R07.9 - CHEST PAIN, UNSPECIFIED SNOMED Code(s): 49194507 Comment: -Thought to be initially non-cardiac given positional nature of pain, however, pt mentioned that he felt similar symptoms when the stress test was done. This has now resolved -Will recheck CE x2 more times -Informed pt and that the official result of stress test given above concerning history will need to be available prior to D/C; as of writing of this note, the results are still unavailable -May possibly be confounded by uncontrolled GERD (2) GERD (gastroesophageal reflux disease) Current Visit: Yes Status: Acute Code(s): K21.9 - GASTRO-ESOPHAGEAL REFLUX DISEASE WITHOUT ESOPHAGITIS SNOMED Code(s): 879493128 Comment: -Please see above discussion -Continue PPI BID, Sucralfate QID, and PRN Maalox-Plus -Advise to be re-evaluated by GI as outpt given non-compliance with PPE; discussed Barretts and how this could lead to esophageal adenoCA if uncontrolled for years (3) ETOH abuse Current Visit: Yes Status: Acute Code(s): F10.10 - ALCOHOL ABUSE, UNCOMPLICATED SNOMED Code(s): 72683632 Comment: -No S/S consistent with withdrawal at this time -Continue WAM protocol/watchful waiting -Advised lifestyle modifications (4) DVT prophylaxis Current Visit: Yes Status: Acute Code(s): ERL3271 - SNOMED Code(s): 478839757 Comment: -Continue Lovenox SQ Status and Disposition: -Awaiting official result of stress test
--- NOTE | 2018-02-01 19:35 | RAD ---
Indication: Chest pain. Myocardial perfusion scan was performed utilizing one day protocol. Rest myocardial perfusion was performed after intravenous injection of 10.7 mCi of technetium 99m tetrofosmin. Pharmacological stress was applied and 25.6 mCi of technetium 99m tetrofosmin was injected for the stress portion of the study. There is photopenia on the inferior wall which appears to correct on the attenuated corrected images and this likely represents diaphragmatic attenuation due to elevated right hemidiaphragm. No definite reversible change is identified. The ejection fraction is 65% at stress. Evaluation of wall motion demonstrates no evidence of focal wall motion abnormality. IMPRESSION: Inferior wall photopenia which is likely due to diaphragmatic attenuation. No definite fixed or reversible perfusion defect is identified. ASSESSMENT: Low risk Based on imaging criteria from ACC/AHA 2002 Guideline Update for the Management of Patients With Chronic Stable Angina Table 23. Noninvasive Risk Stratification.
[2018-02-01 20:31] VITALS: BP 120/80
== END 2018-02-01 20:31 | disposition home or self-care (01) ==
LOC: ED 12:24 → MEDTELE 19:04
PROVIDERS: ADMIT Student in an Organized Health Care Education/Training Program; ATTEND Student in an Organized Health Care Education/Training Program
DX: R07.9 Chest pain, unspecified (principal); R42 Dizziness and giddiness; R20.0 Anesthesia of skin; R00.2 Palpitations; Z79.899 Other long term (current) drug therapy; Z91.040 Latex allergy status; K21.9 Gastro-esophageal reflux disease without esophagitis; F10.10 Alcohol abuse, uncomplicated
CPT/HCPCS: 36415; 71045; 78452; 80053; 80061; 83036; 83605; 83735; 84100; 84443; 84484; 85025; 93005; 93017; 93306; 96372; 99283; A9270-GY; A9502; G0378; J1650; J2785; J3411